=== PATIENT | female | born 1995 | race Caucasian/White ===

== ENCOUNTER 2021-04-27 06:35 | Emergency (ER) | payer MEDICARE, MEDICAID, SELFPAY ==
[2021-04-27 06:35] VITALS: BP 139/96; PULSE 95; RESP 16; TEMP 37.1; O2SAT 96; BMI 29.7
--- NOTE | 2021-04-27 07:20 | ED.HA ---
HPI - Headache General Chief Complaint: Headache Stated Complaint: migraine, threw up, ears are clogged both sides Time Seen by Provider: 04/27/21 06:40 Source: patient Mode of arrival: Ambulatory Limitations: no limitations History of Present Illness HPI Narrative: Patient is a 25-year-old female who is here for evaluation of a headache and bilateral ear discomfort with left being greater than right. She states this started a couple days ago. Is a gradual onset. No fevers. Is having nausea. Tried Tylenol prior to arrival without any improvement. Has some abdominal discomfort but she describes this is nausea. No rashes no vision changes. No neck pain. No fevers. Related Data Home Medications Medication Instructions Recorded Confirmed Dicyclomine Hydrochloride 20 mg PO QID #0 03/05/11 (#DICYCLOMINE HCL) PSYLLIUM (#METAMUCIL) 1.7 gm PO Q DAY #0 03/05/11 citalopram 40 mg tablet (Celexa) 40 mg PO Q DAY #0 03/05/11 docusate sodium 100 mg capsule 100 mg PO BID #0 03/05/11 omeprazole 20 mg capsule,delayed #0 03/05/11 release Previous Rx's Medication Instructions Recorded [id number] 3.5 4 drp EAR-BOTH QID 7 Days #10 ml 04/27/21 mg-10,000 unit/mL-1 % ear drops,susp Allergies Allergy/AdvReac Type Severity Reaction Status Date / Time No Known Drug Allergies Allergy Verified 04/27/21 06:59 Review of Systems Constitutional Constitutional: Reports system reviewed and no additional complaints, except as documented, Denies fever(s) and Reports headache(s) Eyes Eyes: Reports system reviewed and no additional complaints, except as documented ENT Ears, Nose, Mouth, and Throat: Reports headache(s) Cardiovascular Cardiovascular: Reports system reviewed and no additional complaints, except as documented Respiratory Respiratory: Reports system reviewed and no additional complaints, except as documented Gastrointestinal Gastrointestinal: Reports as per HPI and Reports system reviewed and no additional complaints, except as documented Genitourinary Genitourinary: Reports system reviewed and no additional complaints, except as documented Musculoskeletal Musculoskeletal: Reports system reviewed and no additional complaints, except as documented Integumentary/Breasts Skin/Breast: Reports system reviewed and no additional complaints, except as documented Neurologic Neurologic: Reports headache(s) Hematologic/Lymphatic On Anticoagulants: No Allergic/Immunologic Allergic/Immunologic: Reports system reviewed and no additional complaints, except as documented Patient History Medical History Gastroesophageal reflux disease Social History Smoking Status: Never smoker Smoking Status: Never smoker Substance Use Type: does not use Exam Initial Vital Signs Initial Vital Signs: Vital Signs Temperature 98.7 F 04/27/21 06:35 Pulse Rate 95 H 04/27/21 06:35 Respiratory Rate 16 04/27/21 06:35 Blood Pressure 139/96 H 04/27/21 06:35 Pulse Oximetry 96 04/27/21 06:35 Const General: cooperative, comfortable and well developed HENMS Head: normal to inspection Ears: EAC abnormal erythema bilaterally Eyes General: appearance normal, both eyes and all related structures Resp Effort & Inspection: normal respiratory effort Auscultation: clear to auscultation bilaterally Cardio Rate: regular rate Rhythm: regular rhythm GI Inspection: normal to inspection Palpation: soft Skin General: no rashes or lesions noted Neuro General: patient alert, patient awake and moves all extremities Speech: speech normal Gait: normal gait Extrem General: normal to inspection and capillary refill normal Psych Appearance: grossly normal and well kempt Course Orders Ordered: Discontinued Medications Diphenhydramine HCl (Diphenhydramine 50 Mg/Ml Vial) 25 mg IV NOW ONE Stop: 04/27/21 07:48 Last Admin: 04/27/21 07:54 Dose: 25 mg Documented by: CTR.HANDER Sodium Chloride (Normal Saline 0.9%) 1,000 mls @ 1,000 mls/hr IV BOLUS ONE Stop: 04/27/21 07:48 Last Admin: 04/27/21 07:35 Dose: 1,000 mls/hr Documented by: CTR.HANDER Ketorolac Tromethamine (Ketorolac 30 Mg/Ml Vial) 15 mg IV NOW ONE Stop: 04/27/21 06:50 Last Admin: 04/27/21 07:35 Dose: 15 mg Documented by: CTR.HANDER Metoclopramide HCl (Metoclopramide 10 Mg/2 Ml Inj) 10 mg IV NOW ONE Stop: 04/27/21 06:50 Last Admin: 04/27/21 07:35 Dose: 10 mg Documented by: CLAYTON Vital Signs Vital signs: Vital Signs - 8 hr 04/27/21 06:35 Temperature 98.7 F Pulse Rate 95 H Respiratory Rate 16 Blood Pressure 139/96 H Pulse Oximetry 96 MDM - Headache MDM Narrative Medical decision making narrative: Patient has had symptoms for the past couple days. Have low suspicion for meningitis. Low suspicion for intracranial hemorrhage. She does have bilateral otitis externa. She stated that her headache started when she started to have ear discomfort I suspect that this is the cause of her symptoms. She reports resolution of her headache after medications here in the ER. Well treat with antibiotic drops. I feel that we can hold on further workup for now to include head CT. She was given return precautions. She expressed understanding and agreement. Discharge Plan Departure Patient Disposition: Home Clinical Impression: Headache, Otitis externa Instructions: DI for Otitis Externa, DI for Headache Activity Restrictions/Additional Instructions: Recommend that you take the antibiotic ear drops as directed. Take the rest of your medications as directed. Contact her primary doctor for follow-up. Return to the emergency department for any new or worsening symptoms. Prescriptions: New [id number]-[id number] 3.5-10,000-1 mg/mL-unit/mL-% drops,suspension 4 drp EAR-BOTH QID 7 Days Qty: 10 RF: 0 No Action docusate sodium 100 MG capsule 100 mg PO BID Qty: 0 RF: 0 omeprazole 20 MG capsule,delayed release(DR/EC) Qty: 0 RF: 0 citalopram [Celexa] 40 MG tablet 40 mg PO Q DAY Qty: 0 RF: 0 Dicyclomine Hydrochloride (#DICYCLOMINE HCL) 20 mg PO QID Qty: 0 RF: 0 PSYLLIUM (#METAMUCIL) 1.7 gm PO Q DAY Qty: 0 RF: 0
[2021-04-27] MEDS: SODIUM CHLORIDE 0.9% 1,000 ML 1000 ML IV (07:35)
[2021-04-27] MEDS: KETOROLAC 30 MG/ML VIAL 15 MG IV (07:35)
[2021-04-27] MEDS: METOCLOPRAMIDE 10 MG/2 ML INJ IV (07:35)
[2021-04-27] MEDS: diphenhydrAMINE 50 MG/ML VIAL 25 MG IV (07:54)
[2021-04-27 08:59] VITALS: BP 121/80; PULSE 83; RESP 16; O2SAT 100
== END 2021-04-27 09:14 | disposition home or self-care (01) ==
PROVIDERS: Emergency Provider Emergency Medicine
DX: R51.9 Headache, unspecified (principal); H60.93 Unspecified otitis externa, bilateral; R11.0 Nausea; R10.9 Unspecified abdominal pain
CPT/HCPCS: 36415; 96361; 96374; 96375; 99284; J1200; J1885; J2765

== ENCOUNTER 2021-07-25 03:14 | Emergency (ER) | payer MEDICARE, MEDICAID, SELFPAY ==
[2021-07-25 03:28] VITALS: BP 176/90; PULSE 102; RESP 18; TEMP 37.4; O2SAT 96; BMI 42.3
--- NOTE | 2021-07-25 03:43 | ED.URI ---
HPI - URI/Sore Throat General Chief Complaint: Upper Respiratory Symptoms Stated Complaint: achey/nausea/headach x5 hours Time Seen by Provider: 07/25/21 03:35 Source: patient Mode of arrival: Ambulatory History of Present Illness HPI Narrative: Patient is a 25-year-old female with history of PCOS who is not vaccinated for COVID concern for COVID. She states that she was exposed recently by her mother. At 10:00 p.m. this evening she started having nausea body aches burning in her eyes she went to bed and woke up with body aches. She has not taken any Tylenol or ibuprofen and comes to the emergency department for a COVID test. She also has been having some lower abdominal intermittent cramping. She denies any vomiting or diarrhea. Patient is concerned that she is dehydrated because she has not had anything drink for the last 6 hours. Related Data Home Medications Medication Instructions Recorded Confirmed Dicyclomine Hydrochloride 20 mg PO QID #0 03/05/11 (#DICYCLOMINE HCL) PSYLLIUM (#METAMUCIL) 1.7 gm PO Q DAY #0 03/05/11 citalopram 40 mg tablet (Celexa) 40 mg PO Q DAY #0 03/05/11 docusate sodium 100 mg capsule 100 mg PO BID #0 03/05/11 omeprazole 20 mg capsule,delayed #0 03/05/11 release Allergies Allergy/AdvReac Type Severity Reaction Status Date / Time No Known Drug Allergies Allergy Verified 04/27/21 06:59 Review of Systems Review of Systems Narrative: GENERAL: Denies chills,fever HEENT: D see HPI RESPIRATORY: Denies dyspnea, cough, wheezing CARDIOVASCULAR: Denies chest pain, palpitations GASTROINTESTINAL: + nausea Denies vomiting MUSCULOSKELETAL: Denies extremity pain, injury SKIN: No rash, no laceration, no pruritus NEUROLOGIC: Denies weakness, dizziness, headache, numbness 8 point review of systems is negative except for those stated above and HPI Patient History Medical History Gastroesophageal reflux disease Social History Smoking Status: Never smoker Smoking Status: Never smoker Substance Use Type: does not use Exam Initial Vital Signs Initial Vital Signs: Vital Signs Temperature 99.3 F 07/25/21 03:28 Pulse Rate 102 H 07/25/21 03:28 Respiratory Rate 18 07/25/21 03:28 Blood Pressure 176/90 H 07/25/21 03:28 Pulse Oximetry 96 07/25/21 03:28 GENERAL: Well-appearing, well-nourished and in no acute distress. HEENT: Head atraumatic,EOMI, pupils reactive, face symmetric, moist mucous membranes CARDIOVASCULAR: Regular rate and rhythm without murmurs, rubs or gallops. RESPIRATORY: Breath sounds equal bilaterally, no wheezes rales or rhonchi. ABDOMEN: Soft, nontender. Normoactive bowel sounds all 4 quadrants. No guarding or rebound. EXTREMITIES: Normal range of motion, no clubbing or edema. Neurovascularly intact NEUROLOGICAL: Alert and oriented x4.Normal gait and speech. SKIN: Warm, dry, no laceration, no petechiae, no rashes or lesions. Course Orders Ordered: ED Orders 07/25/21 03:25 COVID19 -Nasal swab/Pre-Proc Stat Discontinued Medications Ibuprofen (Ibuprofen 400 Mg Tablet) 800 mg PO NOW ONE Stop: 07/25/21 03:43 Last Admin: 07/25/21 03:55 Dose: 800 mg Documented by: JOSEPHINE Ondansetron HCl (Ondansetron 4 Mg Odt) 4 mg SL NOW ONE Stop: 07/25/21 03:43 Last Admin: 07/25/21 03:55 Dose: 4 mg Documented by: JOSEPHINE Vital Signs Vital signs: Vital Signs - 8 hr 07/25/21 03:28 07/25/21 04:43 Temperature 99.3 F Pulse Rate 102 H 84 Respiratory Rate 18 18 Blood Pressure 176/90 H 151/87 H Pulse Oximetry 96 95 MDM - URI/Sore Throat Lab Data Labs: Lab Results 07/25/21 Range/Units 03:25 SARS-CoV-2 (PCR) Negative (Negative) [facility] Narrative Medical decision making narrative: Patient's COVID test is negative. However I did discuss with her symptoms have only been ongoing for a few hours and I strongly recommend that she have a repeat COVID test in about 4-5 days. She is tolerating fluid abdomen is relatively soft even though she complains of mild cramping. No active vomiting or diarrhea. At this time she has no concerning signs or symptoms for dehydration. I have discussed with her monitoring for COVID at home and quarantine eating and when to return to the emergency Discharge Plan Departure Patient Disposition: Home Clinical Impression: Upper respiratory infection Instructions: DI for COVID-19 (Suspected or Confirmed ) Activity Restrictions/Additional Instructions: Suspect that you have COVID. However at this time her COVID test is negative although you have only been having symptoms for just a few hours. It can take up to 5 days before your COVID test becomes positive. Please have a repeat COVID test either a home test or walk-in clinic test or [facility] test or any other places that off for testing. * if you have not yet been vaccinated is still recommended and encouraged that you do so once your infection has passed At home: -Monitor oxygen with pulse oximeter. If less than 90% for more than 1 hour please return to emergency department -please take Tylenol or Motrin as recommended for fever chills and body aches. -I recommend lying on stomach for side rather than back, it has been proven to increase oxygen levels -Wash hands frequently. -Stay isolated at home please follow the isolation instructions below. -Increase fluid intake. -you may take Tylenol as directed if needed for pain or fever Emergency warning signs for COVID-19: - Difficulty breathing or shortness of breath, oxygen less than 90% - Persistent pain or pressure in the chest - New confusion or inability to arouse - Bluish lips or face CDC Guidelines for home isolation: - Stay away from others - Limit contact with pets and animals: If you must care for a pet, wash your hands before and after interacting with them - Wear a mask while in public all places - Cover your mouth and nose with a tissue when you cough or sneeze. Dispose of tissues in a lined trash can and wash your hands immediately with soap and water for at least 20 seconds. If soap and water are not available, clean hands with alcohol-based hand board certified family physician that contains at least 60% alcohol. - Clean your hands often with soap and water for at least 20 seconds - Avoid touching your eyes, nose and mouth with unwashed hands - Do not share dishes, drinking glasses, cups, eating utensils, towels, or bedding with other people in your home. After using these items, wash them thoroughly with soap and water or put in the security sales manager. - Clean high-touch surfaces in your isolation area (?sick room? and bathroom) every day; let a caregiver clean and disinfect high-touch surfaces in other areas of the home. Clean the area or item with soap and water or another detergent if it is dirty. Then, use a household disinfectant. Prescriptions: No Action docusate sodium 100 MG capsule 100 mg PO BID Qty: 0 0RF omeprazole 20 MG capsule,delayed release(DR/EC) Qty: 0 0RF citalopram [Celexa] 40 MG tablet 40 mg PO Q DAY Qty: 0 0RF Dicyclomine Hydrochloride (#DICYCLOMINE HCL) 20 mg PO QID Qty: 0 0RF PSYLLIUM (#METAMUCIL) 1.7 gm PO Q DAY Qty: 0 0RF
[2021-07-25 03:55] LABS: COVID19 -Nasal RAPID Negative (Negative)
[2021-07-25] MEDS: ONDANSETRON 4 MG ODT SL (03:55)
[2021-07-25] MEDS: IBUPROFEN 400 MG TABLET 800 MG PO (03:55)
[2021-07-25 04:43] VITALS: BP 151/87; PULSE 84; RESP 18; O2SAT 95
== END 2021-07-25 04:44 | disposition home or self-care (01) ==
PROVIDERS: Emergency Provider Emergency Medicine
DX: J06.9 Acute upper respiratory infection, unspecified (principal); Z20.822 Contact with and (suspected) exposure to COVID-19
CPT/HCPCS: 87635; 99283; C9803